=== PATIENT | male | born 2000 | race African-American/Black ===

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

== ENCOUNTER 2018-03-31 23:33 | Emergency (ER) | payer OTHER ==
[2018-04-01] MEDS: ONDANSETRON 4MG/2ML VIAL (J2405) IV (00:08)
[2018-04-01] MEDS: NS 1,000 ML IV (00:08)
[2018-04-01 00:34] LABS: BASO # 0.1 10^3/uL (0.0-0.2); BASO % 0.8 % (0.0-1.0); EOS # 0.1 10^3/uL (0.0-0.50); EOS % 0.9 % (0.0-3.0); HEMATOCRIT 45.3 % (42.0-52.0); HEMOGLOBIN 15.2 g/dl (13.5-17.5); IMMATURE GRANULOCYTE % 0.3 % (0-3.0); LYMPH # 1.7 10^3/uL (1.5-6.5); LYMPH % 25.8 % (24.0-44.0); MEAN CORPUSCULAR HEMOGLOBIN 29.3 pg (27.0-33.0); MEAN CORPUSCULAR HGB CONC 33.6 g/dl (32.0-36.5); MEAN CORPUSCULAR VOLUME 87.5 fl (80.0-96.0); MONO # 0.5 10^3/uL (0.0-0.8); NEUTROPHILS # 4.2 10^3/uL (1.8-7.7); NEUTROPHILS % 64.2 % (36.0-66.0); PLATELET COUNT, AUTOMATED 162 10^3/uL (150-450); RED BLOOD COUNT 5.18 10^6/uL (4.30-6.10); RED CELL DISTRIBUTION WIDTH 13.4 % (11.5-14.5); WHITE BLOOD COUNT 6.5 10^3/uL (4.0-10.0)
[2018-04-01 00:38] LABS: APPEARANCE, URINE CLEAR (CLEAR); BACTERIA, URINE AUTO NEGATIVE (NEGATIVE); BILIRUBIN, URINE AUTO NEGATIVE (NEGATIVE); BLOOD, URINE BLOOD NEGATIVE (NEGATIVE); COLOR, URINE YELLOW (YELLOW); GLUCOSE, URINE (UA) AUTO NEGATIVE (NEGATIVE); KETONE, URINE AUTO NEGATIVE (NEGATIVE); LEUKOCYTE ESTERASE, URINE AUTO NEGATIVE (NEGATIVE); MUCUS, URINE SMALL (NEGATIVE); NITRITE, URINE AUTO NEGATIVE (NEGATIVE); PROTEIN, URINE AUTO 1+ mg/dL (NEGATIVE); RBC, URINE AUTO 2 /HPF (0-3); SPECIFIC GRAVITY URINE AUTO 1.027 (1.002-1.035); SQUAMOUS EPITHELIAL CELL UR AU 0 /HPF (0-6); UROBILINOGEN, URINE AUTO 0.2 mg/dL (0.0-2.0); WBC, URINE AUTO 5 /HPF (0-3)
[2018-04-01 00:59] LABS: ALBUMIN 4.2 GM/DL (3.2-5.2); ALBUMIN/GLOBULIN RATIO 1.17 (1.00-1.93); ALKALINE PHOSPHATASE 92 U/L (45-117); ALT/SGPT 49 U/L (12-78); ANION GAP 6 MEQ/L (8-16); AST/SGOT 57 U/L (7-37); BILIRUBIN,TOTAL 0.9 MG/DL (0.2-1.0); BLOOD UREA NITROGEN 15 MG/DL (7-18); CALCIUM LEVEL 8.9 MG/DL (8.5-10.1); CARBON DIOXIDE LEVEL 31 MEQ/L (21-32); CHLORIDE LEVEL 105 MEQ/L (98-107); CREATININE FOR GFR 1.01 MG/DL (0.70-1.30); GLUCOSE, FASTING 91 MG/DL (70-100); LIPASE 141 U/L (73-393); POTASSIUM SERUM 4.1 MEQ/L (3.5-5.1); SODIUM LEVEL 142 MEQ/L (136-145); TOTAL PROTEIN 7.8 GM/DL (6.4-8.2)
[2018-04-01] MEDS ORDERED: AUGMENTIN 875 MG TAB PO (01:45)
[2018-04-01] MEDS: PROMETHAZINE 25 MG TAB PO (01:48)
[2018-04-01] MEDS: ONDANSETRON 4 MG ORAL DISINTEGRATING TAB (Q0162 PER 1MG) PO (02:19)
== END 2018-04-01 02:26 | disposition home or self-care (01) ==
LOC: M ED 23:33
DX: K29.20 Alcoholic gastritis without bleeding (principal)
CPT/HCPCS: J2405

== ENCOUNTER → 2019-10-08 | Outpatient (REF) ==
[~2019-10-08] MED LIST: RANI15TA PO
--- NOTE | 2019-10-08 17:17 | REP ---
Clinical: Autopsy Technique: Portable supine and lateral views of the cervical spine. Findings: Examination is limited by technique and traumatic findings. Innumerable fractures of the visualized skeletal structures are noted. Portions of the facial bones and calvarium appear traumatically absent. Impression: Extensive trauma including innumerable fractures of the visualized skeletal structures and partial absence of the calvarium and facial bones with associated soft tissues due to trauma. Electronically Signed by Mahendra Quintanilla MD 10/08/2019 05:09 P
--- NOTE | 2019-10-08 17:20 | REP ---
Clinical: Autopsy Technique: Portable supine views of the chest. Findings: Innumerable bilateral rib fractures (left greater than right) along with extensive pneumothorax, malpositioned mediastinal structures, and bilateral humerus fractures noted. Impression: Traumatic findings as described above. Electronically Signed by Mahendra Quintanilla MD 10/08/2019 05:12 P
--- NOTE | 2019-10-08 17:21 | REP ---
Clinical: Autopsy Technique: Portable supine view of the pelvis. Findings: Displaced transverse fracture through the right femoral shaft. No other obvious fracture. Impression: Transverse displaced fracture through the right femoral shaft. Electronically Signed by Mahendra Quintanilla MD 10/08/2019 05:13 P
== END ==
LOC: M LAB 11:49